=== PATIENT | female | born 1940 | race Caucasian/White ===

== ENCOUNTER 2016-12-15 11:59 | Day surgery (SDC) | payer OTHER ==
[2016-12-14 13:52] VITALS: BMI 24.3
[~2016-12-15 11:59] MED LIST: BETAMET ACET/BETAMET NA PH 30 MG/5 ML VIAL IJ ONE; BUPIVACAINE HCL/PF 0.25% (2.5MG/ML) 10 ML VIAL IJ ONE; IOHEXOL 180 MG/1 ML ML IJ ONE; LIDOCAINE HCL 1%, 10 MG/ML (20ML VIAL) IJ ONE
[2016-12-15 13:22] VITALS: TEMP 97.8
[2016-12-15] MEDS ORDERED: LIDOCAINE HCL/PF 2% SDV 5ML VIAL ONE (14:28)
[2016-12-15] MEDS ORDERED: PROPOFOL 20 ML ONE (14:28)
[2016-12-15] MEDS ORDERED: IOHEXOL 180 MG/1 ML ML IJ ONE (14:40)
[2016-12-15] MEDS ORDERED: BETAMET ACET/BETAMET NA PH 30 MG/5 ML VIAL IJ ONE (14:42)
[2016-12-15] MEDS ORDERED: BUPIVACAINE HCL/PF 0.25% (2.5MG/ML) 10 ML VIAL IJ ONE (14:42)
[2016-12-15] MEDS ORDERED: LIDOCAINE HCL 1%, 10 MG/ML (20ML VIAL) IJ ONE (14:43)
[2016-12-15 16:45] VITALS: BP 144/68; PULSE 50
--- NOTE | 2016-12-15 18:14 | OP ---
DATE OF OPERATION: 12/15/2016. PREOPERATIVE DIAGNOSIS: Low back pain, spinal stenosis, lumbar radiculopathy on the left side. POSTOPERATIVE DIAGNOSIS: Low back pain, spinal stenosis, lumbar radiculopathy on the left side. PROCEDURE: Lumber epidural steroid injection on left side L4-L5, intralaminal. ANESTHESIA: Local and MAC. ANESTHESIOLOGIST: Kira Bradley M.D. PROCEDURE: I discussed in detail about risks, benefits, and alternatives of treatment not only limited to infection, fever, headache, numbness, tingling, weakness, injury to blood vessels or nerves. Patient understood, agreed, and signed the written consent. Patient was placed in the prone position with head, abdomen, and legs supported with pillows. Lumbosacral area was prepped, draped with Betadine x3, and alcohol x3. On the left side, L4-L5 level was identified under fluoroscopy. At this level, 3 mL of 1% lidocaine was infiltrated into skin and subcutaneous tissue. 20 gauge, 3-1/2 inch Tuohy needle was used to approach the epidural space with loss of resistance technique with intermittent fluoroscopy. Then 2 mL of Omnipaque was injected to see the flow of dye into epidural space. Up flow of dye was noted effusion. There was no positive uptake or CSF spread. Then 2.5 mL of Celestone mixed with 2.5 mL of 0.25% Marcaine total of 5 mL was injected into the epidural space after negative aspiration. While needle was withdrawn, 1 mL of 1% lidocaine was used to infiltrate. Bleeding was checked. Betadine was wiped off. Sterile bandage was placed. There was no immediate complication. Patient was transferred to recovery room. Patient was observed for some time and discharged as per ASU criteria. Patient was told to apply ice, if any problems call me or report to ER. Patient was given a followup appointment. TASHI RODGERS M.D. KRYSTAL/[id number]
== END 2016-12-15 16:15 | disposition home or self-care (01) ==
LOC: JASU-SURG 11:59
PROVIDERS: ATTEND Physical Medicine & Rehabilitation
PROC: 3E0S33Z Introduction of Anti-inflammatory into Epidural Space, Percutaneous Approach (ICD-10-PCS; 2016-12-15)
PROC: B01BYZZ Fluoroscopy of Spinal Cord using Other Contrast (ICD-10-PCS; 2016-12-15)
PROC: 3E0S3BZ Introduction of Anesthetic Agent into Epidural Space, Percutaneous Approach (ICD-10-PCS; principal; 2016-12-15 13:30)
DX: M48.06 Spinal stenosis, lumbar region (principal); M54.16 Radiculopathy, lumbar region; M54.89 Other dorsalgia
CPT/HCPCS: 76000-TC

== ENCOUNTER 2019-07-11 03:41 | Emergency (ER) | payer OTHER ==
[2019-07-11 04:33] VITALS: BP 128/57; PULSE 53; TEMP 97.2; BMI 21.4
--- NOTE | 2019-07-11 04:46 | PDOC ---
Attending Attestation - Resident Resident Name: Ever Vang - ED Attending Attestation I have performed the following: I have examined & evaluated the patient, The case was reviewed & discussed with the resident, I agree w/resident's findings & plan - HPI HPI: 07/11/19 07:00 see resident hpi - Physicial Exam PE: 07/11/19 07:00 agree with resident exam - Medical Decision Making 07/11/19 07:00 78 yo s/p fall with back/neck pain CT spine/pelvis pending signed out to day shift
--- NOTE | 2019-07-11 05:08 | PDOC ---
History of Present Illness - General Chief Complaint: Injury Stated Complaint: HEAD PAIN S/P FALL Time Seen by Provider: 07/11/19 04:31 - History of Present Illness Initial Comments: Ms. Guzman is a 78 y/o female with non-contributory PMH presenting today s/p mechanical fall. Reports that 1 day ago she was reaching above her head for a cabinet when she lost her balance and fell backwards. Reports falling on her neck and back. Reports hitting the back of her head, denies LOC. Today, she reports continued left neck and lower back pain. States that pain is worsened when walking. Reports mild frontal headache. Denies chest pain/ shortness of breath. Denies abdominal pain. Denies weakness. Denies change in sensation. Denies change in bowel/bladder. Denies nausea/vomiting. Denies fever/ chills. Past History - Past Medical History Allergies/Adverse Reactions: Allergies Allergy/AdvReac Type Severity Reaction Status Date / Time No Known Drug Allergies Allergy Verified 07/11/19 04:30 Home Medications: Ambulatory Orders Acetaminophen [Tylenol .Regular Strength -] 650 mg PO PRN PRN 07/11/12 Aspirin Coated [Ecotrin -] 81 mg PO DAILY 07/11/12 Ergocalciferol [Drisdol] 50,000 unit PO WEEKLY 07/11/12 Esomeprazole Mag Trihydrate [Nexium] 40 mg PO DAILY 07/11/12 Levothyroxine [Synthroid -] 50 mcg PO DAILY 07/11/12 Rosuvastatin Calcium [Crestor] 10 mg PO HS 07/11/12 Cetirizine HCl [Zyrtec Rapidly Dissolving Tab -] 10 mg PO DAILY 04/16/14 Fluticasone Prop 0.05% Nasal [Flonase -] 2 spray NS BID 04/16/14 Acetaminophen W/ Codeine #3 [Tylenol # 3 -] 1 tab PO Q6H PRN 12/15/16 Calcium Carbonate/Vitamin D3 [Calcium 500-Vit D3 200 Tablet] 1 each PO DAILY Cyclobenzaprine HCl [Flexeril 10 mg] 10 mg PO BID PRN 12/15/16 Gabapentin [Neurontin] 100 mg PO DAILY 12/15/16 Meclizine HCl [Antivert -] 25 mg PO DAILY PRN 12/15/16 Multivitamin,Therapeutic [Oncovite] 1 each PO DAILY 12/15/16 Sennosides [Senokotxtra] 2 tab PO HS 12/15/16 Anemia: Yes (HX OF) Asthma: No Cancer: No Cardiac Disorders: No CVA: No COPD: No CHF: No Dementia: No Diabetes: No GI Disorders: No Disorders: No HTN: No Hypercholesterolemia: Yes Liver Disease: No Seizures: No Thyroid Disease: Yes - Surgical History Abdominal Surgery: No Appendectomy: Yes Cardiac Surgery: No Cholecystectomy: No Lung Surgery: No Neurologic Surgery: No Orthopedic Surgery: No - Psycho Social/Smoking Cessation Hx Smoking History: Never smoked Hx Alcohol Use: No Drug/Substance Use Hx: No Substance Use Type: None Hx Substance Use Treatment: No Review of Systems - Review of Systems Comments:: GENERAL/CONSTITUTIONAL: No fever or chills. No weakness._ HEAD, EYES, EARS, NOSE AND THROAT: No change in vision. No change in hearing. No sore throat._ CARDIOVASCULAR: No chest pain or shortness of breath_ RESPIRATORY: Denies cough, hemoptysis_ GASTROINTESTINAL: No nausea, vomiting, diarrhea or constipation._ GENITOURINARY: No dysuria, frequency, or change in urination._ MUSCULOSKELETAL: Reports neck pain and back pain. SKIN: No rash_ NEUROLOGIC: Reports headache. No vertigo, loss of consciousness, or change in strength/sensation._ ENDOCRINE: No increased thirst. No abnormal weight change_ HEMATOLOGIC/LYMPHATIC: No anemia, easy bleeding, or history of blood clots._ ALLERGIC/IMMUNOLOGIC: No hives or skin allergy._ *Physical Exam - Vital Signs Last Vital Signs Temp Pulse Resp BP Pulse Ox 97.2 F L 53 L 18 128/57 L 100 07/11/19 04:00 07/11/19 04:00 07/11/19 04:00 07/11/19 04:00 07/11/19 04:00 - Physical Exam GENERAL: Awake, alert, and oriented to person/place/time, in no acute distress_ HEAD: No signs of trauma, normoc ephalic, atraumatic _ EYES: PERRLA, EOMI, sclera anicteric, conjunctiva clear_ ENT: Hearing grossly normal, nares patent, oropharynx clear without exudates. No uvular deviation. Moist mucosa_ NECK: Normal ROM, supple, no lymphadenopathy, JVD, or masses. No c-spine tenderness. No bruit appreciated. LUNGS: No distress, speaks in full sentences, clear to auscultation bilaterally _ HEART: Regular rate and rhythm, normal S1 and S2, no murmurs appreciated, peripheral pulses normal and equal bilaterally._ ABDOMEN: Soft, nontender, normoactive bowel sounds. No guarding, no rebound. No masses_ BACK: TTP lumbar midline and paraspinal areas. EXTREMITIES: Normal inspection, Normal range of motion, no edema. No clubbing or cyanosis_ NEUROLOGICAL: Cranial nerves II through XII grossly intact. Normal speech, antalgic gait with preference to the left side, no focal sensorimotor deficits _ SKIN: Warm, Dry, normal turgor, no rashes or lesions noted_ ED Treatment Course - RADIOLOGY Radiology Studies Ordered: Category Date Time Status CERVICAL SPINE CT W/O CONTR [CT] Stat CT Scan 07/11/19 04:[address] WITHOUT CONTRAST [CT] Stat CT Scan 07/11/19 04:[address] W/O CONTRAST [CT] Stat CT Scan 07/11/19 04:[address] W/O CONTRAST [CT] Stat CT Scan 07/11/19 04:46 Ordered HIP & PELVIS-LEFT [RAD] Stat Radiology 07/11/19 04:46 Ordered HIP & PELVIS-RIGHT [RAD] Stat Radiology 07/11/19 04:46 Ordered Medical Decision Making - Medical Decision Making 07/11/19 05:26 78F presenting s/p mechanical fall onto her back. No neurological findings. No sensory deficits. No motor deficits. -CT head, neck, t-spine, L-spine, pelvis 07/11/19 07:00 Pt signed out to Dr. Mehta. Discharge - Discharge Information Problems reviewed: Yes Clinical Impression/Diagnosis: Fall Qualifiers: Encounter type: initial encounter Qualified Code(s): W19.XXXA - Unspecified fall, initial encounter Condition: Stable Disposition: HOME - Follow up/Referral Referrals: Andreina Salas MD [Primary Care Provider] - - Patient Discharge Instructions Patient Printed Discharge Instructions: How to Prevent Falls Additional Instructions: You were seen in the ER today after falling Your imaging did not show any fractures. You can take tylenol at home for pain and over the counter lidocaine patches. Use all medications as directed on the labels. You have been given copies of your imaging reports. Follow up with your Doctor in the next 2-3 days. Return to the ED: if you have increased, pain, swelling, fevers or chills. - Post Discharge Activity
--- NOTE | 2019-07-11 07:18 | PDOC ---
*Physical Exam - Vital Signs Last Vital Signs Temp Pulse Resp BP Pulse Ox 97.2 F L 53 L 18 128/57 L 100 07/11/19 04:00 07/11/19 04:00 07/11/19 04:00 07/11/19 04:00 07/11/19 04:00 Medical Decision Making - Medical Decision Making 07/11/19 07:16 78 y/o F from home. fall yesterday landed on back. mechanical fall mild headache, left sided neck pain and lumbar back pain walking with a limp workup CT head, and entire spine + pelvis to do pending imaging Lab work wnl. reassess 07/11/19 12:22 no fractures/bleed on CT. patient able to ambulate provided lidocaine patches for pain x2 07/11/19 12:59 Discharge - Discharge Information Problems reviewed: Yes Clinical Impression/Diagnosis: Fall Qualifiers: Encounter type: initial encounter Qualified Code(s): W19.XXXA - Unspecified fall, initial encounter Condition: Stable Disposition: HOME - Follow up/Referral Referrals: Andreina Salas MD [Primary Care Provider] - - Patient Discharge Instructions Patient Printed Discharge Instructions: How to Prevent Falls Additional Instructions: You were seen in the ER today after falling Your imaging did not show any fractures. You can take tylenol at home for pain and over the counter lidocaine patches. Use all medications as directed on the labels. You have been given copies of your imaging reports. Follow up with your Doctor in the next 2-3 days. Return to the ED: if you have increased, pain, swelling, fevers or chills. - Post Discharge Activity
[2019-07-11] MEDS ORDERED: LIDOCAINE 5% TOPICAL PATCH TP ONE (11:10)
[2019-07-11] MEDS ORDERED: LIDOCAINE 5% TOPICAL PATCH ONE (11:11)
[2019-07-11] MEDS ORDERED: LIDOCAINE PATCH REMOVAL MC SCH (22:00)
== END 2019-07-11 13:12 | disposition home or self-care (01) ==
LOC: JER 03:41
DX: W19.XXXA Unspecified fall, initial encounter (principal); Y93.89 Activity, other specified; Y92.89 Other specified places as the place of occurrence of the external cause; Y99.8 Other external cause status
CPT/HCPCS: 70450-TC; 72125-TC; 72128-TC; 72131-TC; 72192-TC; 99282-25

== ENCOUNTER 2019-07-15 16:11 | Emergency (ER) | payer OTHER ==
[2019-07-15 16:22] VITALS: BMI 20.5
--- NOTE | 2019-07-15 16:25 | PDOC ---
History of Present Illness - General Chief Complaint: Vomiting/Diarrhea Stated Complaint: ABD PAIN/VOMITING Time Seen by Provider: 07/15/19 16:23 History Source: Patient Exam Limitations: No Limitations - History of Present Illness Initial Comments: 07/15/19 16:24 HPI: 78 yo F pmh HTN, hyperlipidemia, hypothyroidism, GERD, diverticulitis, and fibromyalgia presenting with abdominal pain for three days. Reports one episode of NBNB emesis on Wednesday. Two episodes of loose stool over the past 24 hours. Endorses reduced appetite, but ate oatmeal, chicken, and drank water today. Endorses mild headache and weakness, denies fevers, chills, current nausea, chest pain, SOB, cough, body aches. Complains of continued belching over the past three days. Only surgery was appendectomy. Seen in urgent care for "flu-like symptoms" and here for a fall 07/11. No known personal sick contacts. No recent travels. Denies other bowel movement abnormalities, no bloody or dark stools. Denies dysuria, hematuria, frequency. All: NKDA PMH: as above PSH: appendectomy SHx: denies etoh, cigarettes, illicits Past History - Travel Traveled outside of the country in the last 30 days: No Close contact w/someone who was outside of country & ill: No - Past Medical History Allergies/Adverse Reactions: Allergies Allergy/AdvReac Type Severity Reaction Status Date / Time No Known Drug Allergies Allergy Verified 07/15/19 16:39 Home Medications: Ambulatory Orders Ammonium Lactate Lotion [Lac-Hydrin 12% Lotion -] 1 applic TP BID 07/15/19 Diclofenac/Met Salicyl/Menthol [Diclopr Combo Pack] 1 applic TP BID 07/15/19 Esomeprazole Magnesium [Nexium 24Hr] 40 mg PO DAILY 07/15/19 Gabapentin 300 mg PO DAILY 07/15/19 Levothyroxine Sodium [Levoxyl] 50 mcg PO DAILY 07/15/19 Meloxicam 15 mg PO ASDIR 07/15/19 Mirabegron [Myrbetriq] 50 mg PO DAILY 07/15/19 Rosuvastatin Calcium [Crestor] 20 mg PO HS 07/15/19 Anemia: Yes (HX OF) Asthma: No Cancer: No Cardiac Disorders: No CVA: No COPD: No CHF: No Dementia: No Diabetes: No GI Disorders: No Disorders: No HTN: No Hypercholesterolemia: Yes Liver Disease: No Seizures: No Thyroid Disease: Yes - Surgical History Abdominal Surgery: No Appendectomy: Yes Cardiac Surgery: No Cholecystectomy: No Lung Surgery: No Neurologic Surgery: No Orthopedic Surgery: No - Immunization History Immunization Up to Date: No - Psycho Social/Smoking Cessation Hx Smoking History: Never smoked Have you smoked in the past 12 months: No Information on smoking cessation initiated: No Hx Alcohol Use: No Drug/Substance Use Hx: No Substance Use Type: None Hx Substance Use Treatment: No Review of Systems - Review of Systems Able to Perform ROS?: Yes Is the patient limited Urdu proficient: Yes Constitutional: Yes: Weakness. No: Chills, Diaphoresis, Fever HEENTM: No: Nose Congestion, Throat Pain Respiratory: No: Cough, Shortness of Breath, Wheezing, Productive cough Cardiac (ROS): No: Chest Pain, Edema, Irregular Heart Rate, Lightheadedness, Palpitations, Syncope, Chest Tightness ABD/GI: Yes: Diarrhea, Nausea (three days ago), Poor Appetite (tolerating PO), Vomiting. No: Blood Streaked Bowels, Constipated, Rectal Bleeding, Tarry Stools : No: Burning, Dysuria, Discharge, Frequency, Hematuria Musculoskeletal: Yes: Back Pain (chronic ). No: Muscle Pain, Muscle Weakness Integumentary: No: Bruising, Dryness, Erythema, Rash Neurological: Yes: Headache. No: Numbness, Tingling, Weakness Psychiatric: No: Stressors, Change in Appetite Endocrine: No: Increased Thirst, Increased Urine, Change in Weight Hematologic/Lymphatic: No: Anemia, Blood Clots, Easy Bleeding All Other Systems: Reviewed and Negative *Physical Exam - Vital Signs Last Vital Signs Temp Pulse Resp BP Pulse Ox 98.3 F 61 16 106/50 L 97 07/15/19 16:19 07/15/19 16:19 07/15/19 16:19 07/15/19 16:19 07/15/19 16:19 - Physical Exam 07/15/19 17:17 Vitals reviewed, AFVSS GEN: Well appearing, appears stated age, NAD, comfortable. AAOx3. HEENT: NCAT, EOMI, PERRL. Sclera anicteric, noninjected. No facial asymmetry. Moist mucous membranes. Normal voice. Trachea midline. CV: RRR, S1/S2, no murmurs / rubs / gallops appreciated. LUNG: CTAB, normal work of breathing. No wheezes, rales, rhonchi. No cough. Speaking full sentences. GI: Soft, ?distended mildly, tender throughout with more tenderness suprapubically and LLQ, +BS, no guarding, no rebound. No masses. Neg CVAT b/l. EXTREMITIES: 2+ distal pulses. No LE edema. No obvious deformities of all extremities. SKIN: Warm, dry, no rashes appreciated, non-jaundiced. PSYCH: Normal mood and affect. Cooperative and appropriate. NEURO: CN grossly intact. Moving all extremities well. Normal strength and sensation grossly. ED Treatment Course - LABORATORY CBC & Chemistry Diagram: 07/15/19 17:10 07/15/19 17:10 Medical Decision Making - Medical Decision Making 07/15/19 17:24 78 yo F pmh HTN, hyperlipidemia, hypothyroidism, GERD, diverticulitis, and fibromyalgia presenting with abdominal pain for three days. History notable for appendectomy, diverticulitis, sparce n/v/d, recent flu-like illness. Exam notable for stable vitals, diffusely tender abdomen (mostly LLQ/suprapubic) with ?distention. DDX: Diverticulitis, Influenza, GERD, UTI, less likely r/o ACS. - CBC, CMP, Cardiac profile, Lipase - UA, UCx - EKG - CTAP - Ofirmev - Pepcid, Maalox - 1 L IVF 07/15/19 19:38 - No leukocytosis, no anemia - K 3.2 - Negative cardiac enzymes - Normal renal / hepatic labs - CTAP read pending EKbpm, NSR, normal axis, normal intervals, QTc 412, low voltage QRS, incomplete RBBB, no ST changes 07/15/19 20:51 - CT with known cyst, no acute pathology - UA with 1+ blood, no UTI - Patient drank juice and ate a sandwich without issue - Patient reports feeling considerably better Dispo: Home Discharge - Discharge Information Problems reviewed: Yes Clinical Impression/Diagnosis: Abdominal pain Qualifiers: Abdominal location: generalized Qualified Code(s): R10.84 - Generalized abdominal pain Condition: Stable Disposition: HOME - Admission No - Follow up/Referral - Patient Discharge Instructions Patient Printed Discharge Instructions: [facility] for Abdominal Pain-Adult Additional Instructions: You were seen and evaluated at the [facility] Emergency Department for abdominal pain. Please continue to take your home medications as prescribed. Your symptoms resolved with Tylenol and Pepcid which can be purchased over the counter to try in the future - uses these according to their label. Follow up with your primary care provider in the next 2-3 days if your symptoms persist. Return to the ED for any new or concerning symptoms. - Post Discharge Activity
[2019-07-15] MEDS ORDERED: FAMOTIDINE 20 MG/50 ML IVPB 20 MG/50 ML MG IVPB ONE ×2 (16:56→17:21)
[2019-07-15] MEDS ORDERED: SODIUM CHLORIDE 0.9% 500 ML INFUS.BAG IV ONE (16:56)
[2019-07-15] MEDS ORDERED: MAG HYDROX/AL HYDROX/SIMETH 30 ML UNIT-DOSE CUP PO ONE (16:57)
[2019-07-15] MEDS ORDERED: ACETAMINOPHEN 1000 MG/100 ML VIAL (NON FORMULARY) IVPB ONE (17:06)
[2019-07-15] MEDS ORDERED: ACETAMINOPHEN INJECTION 100 ML IVPB ONE (17:08)
[2019-07-15 17:36] LABS: BASO % 0.7 % (0-2.0); EOS % 2.9 % (0-4.5); HEMATOCRIT 32.6 % (32.4-45.2); HEMOGLOBIN 10.9 GM/dL (10.7-15.3); LYMPH % 23.9 % (8-40); MCH 28.7 pg (25.7-33.7); MCHC 33.4 g/dl (32.0-36.0); MEAN CELL VOLUME 85.8 fl (80-96); MEAN PLT VOLUME 8.2 fl (7.5-11.1); NEUT % 64.5 % (42.8-82.8); PLATELET COUNT 211 K/MM3 (134-434); RDW 13.4 % (11.6-15.6); WHITE BLOOD COUNT 4.8 K/mm3 (4.0-10.0)
[2019-07-15] MEDS ORDERED: MAG HYDROX/AL HYDROX/SIMETH 30 ML UNIT-DOSE CUP ONE (17:44)
[2019-07-15 18:02] LABS: ALBUMIN 3.3 g/dl (3.4-5.0); ALK PHOS 75 U/L (45-117); ANION GAP 9 MMOL/L (8-16); BILIRUBIN,TOTAL 0.2 mg/dL (0.2-1); BLOOD UREA NITROGEN 10.9 mg/dL (7-18); CALCIUM 8.7 mg/dL (8.5-10.1); CHLORIDE 108 mmol/L (98-107); CO2 23 mmol/L (21-32); CREATININE 0.7 mg/dL (0.55-1.3); GLUCOSE,RANDOM 104 mg/dL (74-106); LIPASE 215 U/L (73-393); MAGNESIUM 2.1 mg/dL (1.8-2.4); PHOSPHOROUS 2.2 mg/dL (2.5-4.9); POTASSIUM 3.2 mmol/L (3.5-5.1); SGOT/AST 21 U/L (15-37); SGPT/ALT 21 U/L (13-61); SODIUM 139 mmol/L (136-145)
--- NOTE | 2019-07-15 19:22 | PDOC ---
Documentation entered by Debi Dickinson SCRIBE, acting as scribe for Silvina Disla MD. Silvina Disla MD: This documentation has been prepared by the margoibe, Debi Dickinson SCRIBE, under my direction and personally reviewed by me in its entirety. I confirm that the documentation accurately reflects all work, treatment, procedures, and medical decision making performed by me. Attending Attestation - Resident Resident Name: RussellGiles - ED Attending Attestation I have performed the following: I have examined & evaluated the patient, The case was reviewed & discussed with the resident, I agree w/resident's findings & plan, Exceptions are as noted - HPI HPI: 07/15/19 17:38 The patient is an 78-year-old female with a past medical history significant for GERD, diverticulitis, HLD, and hypothyroidism, who presents to the emergency department with 4 days of abdominal pain. The patient reports pain to the left upper quadrant and mid abdominal region, associated with episodes of diarrhea on . The patient reports the pain is constant, however it varies in severity. Denies recent travel. The patient was seen at the ER on s/p a fall, pt had negative imaging and was discharged home. The patient denies abdominal pain on Wednesday. Allergies: NKDA PCP: The patient is unable to call the name of the PCP. - Physicial Exam PE: 07/15/19 17:54 GENERAL: Awake, alert and oriented x3. The patient is in no acute distress. ENT: Ears normal, nares patent, oropharynx clear without exudates. Moist mucous membranes. NECK: Normal range of motion, supple, no nuchal rigidity LUNGS: Breath sounds equal, clear to auscultation bilaterally. No wheezes, and no crackles. HEART: Regular rate and rhythm, normal S1 and S2 without murmur, rub or gallop. ABDOMEN: +Left sided abdominal pain, no involuntary guarding or rebound. EXTREMITIES: Normal range of motion, no edema. NEUROLOGICAL: Answering all questions. Cranial nerves II through XII grossly intact. Normal speech. No focal neurological deficits. SKIN: Warm, Dry, normal turgor, no rashes or lesions noted. - Medical Decision Making 07/15/19 19:08 78-year-old female presenting to the emergency department with a complaint of lower abdominal pain which has been present now for 4 days DD: colitis, diverticulitis, kidney stone stone, pyelonephritis Will do: labs CT Pain medications re Assess 07/15/19 19:21 Laboratory Tests 07/15/19 07/15/19 17:10 17:10 WBC 4.8 Hgb 10.9 Hct 32.6 Plt Count 211 D BUN 10.9 Creatinine 0.7 Creatine Kinase 71 Troponin I < 0.02 CT pending UA pending 07/15/19 20:54 PRELIMINARY REPORT FROM [employer]AGING [employer] EXAM: CT abdomen pelvis with contrast DATE: 2019-07-15 18:33:49 IMAGES: 420 HISTORY: llq pain IMPRESSION: 4 cm left ovarian cystic lesion similar to 07/11/19. Diverticulosis. No inflammation or obstruction seen. One or more of the following dose reduction techniques were used: automated exposure control, adjustment of the mA and/or kV according to patient size, use of iterative reconstructive technique. THIS DOCUMENT HAS BEEN ELECTRONICALLY SIGNED Shiv Deluna MD 07/15/19 20:54 Laboratory Tests 07/15/19 07/15/19 07/15/19 17:10 17:10 20:40 WBC 4.8 Hgb 10.9 Hct 32.6 Plt Count 211 D BUN 10.9 Creatinine 0.7 Creatine Kinase 71 Troponin I < 0.02 Urine Blood 1+ H Urine Nitrite Negative Ur Leukocyte Esterase Negative Pain has improved and has resolved Will plan to discharge to home Follow up with PMD Return to the ER for any other concerns or complaints
[2019-07-15 19:50] VITALS: TEMP 98
[2019-07-15 20:51] LABS: PH,URINE 7.5 (5.0-8.0); URINE APPEARANCE Clear; URINE BILIRUBIN Negative (NEGATIVE); URINE COLOR Light yellow; URINE GLUCOSE (UA) Negative (NEGATIVE); URINE KETONE Negative (NEGATIVE); URINE LEUK ESTERASE Negative (NEGATIVE); URINE NITRITE Negative (NEGATIVE); URINE PROTEIN Negative (NEGATIVE); URINE UROBILINOGEN 0.2 mg/dL (0.2-1.0)
[2019-07-15 21:00] LABS: URINE RBC 2.9 /hpf (0-4)
[2019-07-15 21:01] LABS: EPI CELLS 0.5 /HPF (0-5/HPF); URINE WBC 0.3 /hpf (0-5)
[2019-07-15 21:13] VITALS: BP 151/69; PULSE 59
--- NOTE | 2019-07-16 12:35 | EKG ---
Test Reason : Blood Pressure : / mmHG Vent. Rate : 051 BPM Atrial Rate : 051 BPM P-R Int : 154 ms QRS Dur : 096 ms QT Int : 448 ms P-R-T Axes : 064 -01 075 degrees QTc Int : 412 ms SINUS BRADYCARDIA LOW VOLTAGE QRS INCOMPLETE RIGHT BUNDLE BRANCH BLOCK CANNOT RULE OUT ANTERIOR INFARCT (CITED ON OR BEFORE 16-APR-2014) ABNORMAL ECG WHEN COMPARED WITH ECG OF 16-APR-2014 11:10, NO SIGNIFICANT CHANGE WAS FOUND Confirmed by SYLVIA MATTA MD ([id number]) on 07/16/2019 12:34:42 PM Referred By: Confirmed By:SYLVIA MATTA MD
== END 2019-07-15 21:12 | disposition home or self-care (01) ==
LOC: JER 16:11
PROC: 3E033GC Introduction of Other Therapeutic Substance into Peripheral Vein, Percutaneous Approach (ICD-10-PCS; principal; 2019-07-15)
PROC: 3E033NZ Introduction of Analgesics, Hypnotics, Sedatives into Peripheral Vein, Percutaneous Approach (ICD-10-PCS; 2019-07-15)
DX: R10.84 Generalized abdominal pain (principal); I10 Essential (primary) hypertension; E78.5 Hyperlipidemia, unspecified; K21.9 Gastro-esophageal reflux disease without esophagitis; M79.7 Fibromyalgia; K57.32 Diverticulitis of large intestine without perforation or abscess without bleeding; N83.202 Unspecified ovarian cyst, left side
CPT/HCPCS: 36415; 74177-TC; 80053; 81003; 82550; 83690; 83735; 84100; 84484; 85025; 93005; 93010; 96365; 96375; 99282-25; J0131; Q9967

== ENCOUNTER 2021-09-10 12:45 | Emergency (ER) | payer OTHER ==
[2021-09-10 12:54] VITALS: BP 107/51; PULSE 64; TEMP 98; BMI 22.4
[2021-09-10] MEDS ORDERED: ACETAMINOPHEN 325 MG TABLET (FP) PO ONE (13:21)
[2021-09-10] MEDS ORDERED: ACETAMINOPHEN 325 MG TABLET (FP) ONE (13:24)
== END 2021-09-10 13:26 | disposition home or self-care (01) ==
LOC: JERFT 12:45
DX: S00.83XA Contusion of other part of head, initial encounter (principal); W22.8XXA Striking against or struck by other objects, initial encounter
CPT/HCPCS: 99283-25

== ENCOUNTER 2023-04-02 04:45 | Day surgery (SDC) | payer OTHER ==
[2023-03-31 08:53] VITALS: BMI 21.6
[2023-04-02 10:08] VITALS: TEMP 98.2
[2023-04-02 10:38] VITALS: RESP 18
[2023-04-02 10:57] VITALS: BP 124/34; PULSE 71
== END 2023-04-02 11:50 | disposition home or self-care (01) ==
LOC: JASU-ENDO 04:45
PROVIDERS: ATTEND Student in an Organized Health Care Education/Training Program
PROC: 0DBN8ZX Excision of Sigmoid Colon, Via Natural or Artificial Opening Endoscopic, Diagnostic (ICD-10-PCS; 2023-04-02)
PROC: 0DBK8ZX Excision of Ascending Colon, Via Natural or Artificial Opening Endoscopic, Diagnostic (ICD-10-PCS; principal; 2023-04-02 09:30)
DX: K63.89 Other specified diseases of intestine (principal); K57.30 Diverticulosis of large intestine without perforation or abscess without bleeding
CPT/HCPCS: 88305-TC

== ENCOUNTER 2024-06-01 04:19 | Day surgery (SDC) | payer OTHER ==
[2024-05-31 12:35] VITALS: BMI 21.6
[2024-06-01] MEDS ORDERED: LIDOCAINE HCL/PF 1% SDV 5ML VIAL ONE (07:31)
[2024-06-01 10:19] VITALS: RESP 18
[2024-06-01] MEDS: LIDOCAINE HCL 1% PRESERVATIVE FREE - 30ML VIAL IJ ONE ×2 (12:35)
[2024-06-01 12:58] VITALS: BP 104/48; PULSE 46; TEMP 97
[2024-06-01] MEDS ORDERED: ACETAMINOPHEN 500 MG TABLET (FP) PO PRN (18:37)
== END 2024-06-01 13:45 | disposition home or self-care (01) ==
LOC: JASU-SURG 04:19
PROVIDERS: ATTEND Pain Medicine Pain Medicine
PROC: 01HY3MZ Insertion of Neurostimulator Lead into Peripheral Nerve, Percutaneous Approach (ICD-10-PCS; principal; 2024-06-01 08:30)
DX: G89.4 Chronic pain syndrome (principal)
CPT/HCPCS: 64555; C1778; 76000-TC-FY

== ENCOUNTER 2024-06-23 04:26 | Day surgery (SDC) | payer OTHER ==
[2024-06-19 09:55] VITALS: BMI 21.6
[2024-06-23] MEDS ORDERED: LIDOCAINE HCL/PF 2% SDV 5ML VIAL ONE (07:13)
[2024-06-23] MEDS ORDERED: TRIAMCINOLONE ACET 40MG/1ML VIAL ONE (07:14)
[2024-06-23] MEDS ORDERED: BUPIVACAINE HCL/PF 0.75% 10 ML VIAL ONE (07:14)
[2024-06-23] MEDS ORDERED: BUPIVACAINE HCL/PF 0.5% (5MG/ML) 10 ML VIAL ONE (07:14)
[2024-06-23] MEDS ORDERED: DEXAMETHASONE SOD PHOSPHATE 10 MG/1 ML VIAL ONE ×2 (07:15→07:29)
[2024-06-23] MEDS ORDERED: LIDOCAINE HCL/PF 1% SDV 5ML VIAL ONE (07:15)
[2024-06-23 09:33] VITALS: RESP 16; TEMP 97.6
[2024-06-23] MEDS: LIDOCAINE HCL 1% PRESERVATIVE FREE - 30ML VIAL IJ ONE ×2 (10:11)
[2024-06-23 10:39] VITALS: BP 119/60; PULSE 50
[2024-06-23] MEDS ORDERED: ACETAMINOPHEN 500 MG TABLET (FP) ONE (11:09)
[2024-06-23] MEDS: ACETAMINOPHEN 500 MG TABLET (FP) PO PRN (11:11)
== END 2024-06-23 11:10 | disposition home or self-care (01) ==
LOC: JASU-SURG 04:26
PROVIDERS: ATTEND Pain Medicine Pain Medicine
PROC: 01HY3MZ Insertion of Neurostimulator Lead into Peripheral Nerve, Percutaneous Approach (ICD-10-PCS; principal; 2024-06-23 08:00)
DX: G89.4 Chronic pain syndrome (principal); M54.50 Low back pain, unspecified
CPT/HCPCS: 64555; C1778; 76000-TC-FY; J1100

== ENCOUNTER 2025-02-12 10:55 | Emergency (ER) | payer OTHER ==
[2025-02-12 11:03] VITALS: TEMP 97.8; BMI 19.3
[2025-02-12 12:21] LABS: EPI CELLS >36 /uL (0-25.1); HYALINE CASTS 24 /uL (0-3.1); URINE APPEARANCE CLOUDY; URINE BACTERIA 24 /uL (0-1359); URINE BILIRUBIN 2+ (NEGATIVE); URINE COLOR DK YELLOW; URINE GLUCOSE (UA) NEGATIVE (NEGATIVE); URINE KETONE 1+ (NEGATIVE); URINE LEUK ESTERASE 1+ (NEGATIVE); URINE NITRITE NEGATIVE (NEGATIVE); URINE PROTEIN 1+ (NEGATIVE); URINE UROBILINOGEN 1.0 mg/dL (0.2-1.0); URINE WBC 43 /uL (0-25.8)
[2025-02-12 12:25] LABS: MCHC 31.3 g/dl (32.2-35.5); MEAN CELL VOLUME 86.2 fl (79.4-94.8); MEAN PLT VOLUME 12.5 fl (9.4-12.3); RDW 13.6 % (12.5-17.0)
[2025-02-12 13:02] LABS: GLUCOSE,RANDOM 101.0 mg/dL (74-106)
[2025-02-12 13:03] LABS: TOT PROT 6.8 g/dl (6.4-8.2)
[2025-02-12 13:04] LABS: CO2 19.0 mmol/L (21-32)
[2025-02-12 13:06] LABS: ALK PHOS 92.0 U/L (40-150)
[2025-02-12 13:08] LABS: SGOT/AST 38.0 U/L (5-34); SGPT/ALT 24.0 U/L (0-55)
[2025-02-12 13:09] LABS: CREATININE 1.27 mg/dL (0.55-1.3)
[2025-02-12 13:15] LABS: URINE RBC 251.7 /uL (0-23.9)
[2025-02-12 13:34] LABS: HIV INTERPRETATION NEGATIVE (NEGATIVE)
[2025-02-12] MEDS ORDERED: ONDANSETRON *ODT* 4 MG TABLET ONE (14:36)
[2025-02-12] MEDS: ONDANSETRON *ODT* 4 MG TABLET SL ONE (14:40)
[2025-02-12] MEDS: SODIUM CHLORIDE 0.9% 500 ML INFUS.BAG IV ONE (14:40)
[2025-02-12 15:42] LABS: HCV DIAGNOSTIC IN-HOUSE W/RFLX NON-REACTIVE (NONREACTIVE)
[2025-02-12] MEDS: LACTATED RINGERS SOLUTION 1000 ML INFUS.BAG IV ONE (15:51)
[2025-02-12 17:16] VITALS: BP 126/23; PULSE 63; RESP 18
== END 2025-02-12 17:16 | disposition home or self-care (01) ==
LOC: JER 10:55
DX: R19.7 Diarrhea, unspecified (principal); R10.31 Right lower quadrant pain
CPT/HCPCS: 36415; 74177-TC; 80053; 81003; 83735; 84100; 85025; 86803; 86850; 86900; 86901; 87086; 87389; 93005; 93010; 99285-25; Q0162